=== PATIENT | female | born 2000 | race Two or more races ===

== ENCOUNTER 2020-07-20 12:46 | Emergency (ER) | payer MEDICAID, OTHER ==
[~2020-07-20] VITALS: Ht 167.6 cm; Wt 68.9 kg
[2020-07-20 13:04] VITALS: BP 147/108
[2020-07-20] MEDS ORDERED: ALPRAZolam 0.5 MG TAB PO ONE (13:45)
== END 2020-07-20 14:32 | disposition home or self-care (01) ==
LOC: EDBD 12:46 → ER 12:46
DX: F41.1 Generalized anxiety disorder (principal); J45.909 Unspecified asthma, uncomplicated; F17.210 Nicotine dependence, cigarettes, uncomplicated; Z76.0 Encounter for issue of repeat prescription
CPT/HCPCS: 93005

== ENCOUNTER 2024-07-07 05:41 | Emergency (ER) | payer MEDICAID, SELFPAY ==
[~2024-07-07] VITALS: Ht 167.6 cm; Wt 76.6 kg
--- NOTE | 2024-07-07 07:25 | ED.PDOC ---
Eye-HPI HPI Comments This is a 23 year old female presenting with chief complaint of sore throat for the past 2 weeks. Patient reports that it is painful to eat, drink, and talk with a noticeable muffled voice. Has taken DayQuil and hot teas with no relief in symptoms. Denies any sick contacts Denies chest pain shortness of breath Denies inability to move neck, history of meningitis Denies difficulty swallowing nor persistent salivation Denies persistent cough, runny nose, congestion Denies loss of appetite, unintentional weight loss over the past 3 months Denies voice changes Denies history of asthma or seasonal allergies Chief Complaint: Sore Throat Time Seen by MD: 07:21 Primary Care Provider: know Reviewed Notes: Nurses Notes, Medications, Allergies Allergies: Coded Allergies: NO KNOWN ALLERGIES (Unverified , 07/20/20) Information Source: Patient Mode of Arrival: Ambulatory Timing: Weeks Duration: Since onset Quality: Pain Lids: Normal Conjunctiva: Normal Cornea: Normal Pupils: Normal EOM: Normal Fundus: Normal Anterior chamber: Normal Mouth Location: Pharynx Mouth: Normal ENT Ear Exam: Normal Nose: Normal Sinuses: Normal Oropharynx: Red Onset: Spontaneous Throat Exposed to: None History of: None Associated signs and symptoms: Sore Throat Past Medical History PAST MEDICAL HISTORY: Anxiety, Asthma Surgical History: Denies all surgeries HIM CLERK History: Denies all HIM CLERK Hx Family History Family History: Reviewed,noncontributory to illness Social History Smoker: Non-Smoker Alcohol: Denies ETOH Use Drugs: Denies Drug Use Lives In: Home Constitutional: denies: chills, diaphoresis, fatigue, fever, malaise, sweats, weakness, others EENTM: reports: throat pain, voice changes; denies: blurred vision, double vision, ear bleeding, ear discharge, ear drainage, ear pain, ear ringing, eye pain, eye redness, hearing loss, mouth pain, mouth swelling, nasal discharge, nose bleeding, nose congestion, nose pain, photophobia, tearing, throat swelling, others Respiratory: denies: cough, hemoptysis, orthopnea, SOB at rest, shortness of breath, SOB with excertion, stridor, wheezing, others Cardiovascular: denies: chest pain, dizzy spells, diaphoresis, Dyspnea on exertion, edema, irregular heart beat, left arm pain, lightheadedness, palpitations, PND, syncope, others Gastrointestinal: denies: abdomen distended, abdominal pain, blood streaked bowels, constipated, diarrhea, dysphagia, difficulty swallowing, hematemesis, melena, nausea, poor appetite, poor fluid intake, rectal bleeding, rectal pain, vomiting, others Genitourinary: denies: abnormal vagina bleeding, burning, dyspareunia, dysuria, flank pain, frequency, hematuria, incontinence, pain, , vagina disch arge, urgency, others Neurological: denies: dizziness, fainting, headache, left sided numbness, left sided weakness, numbness, paresthesia, pre-existing deficit, right sided numbness, right sided weakness, seizure, speech problems, tingling, tremors, weakness, others Musculoskeletal: denies: back pain, gout, joint pain, joint swelling, muscle pain, muscle stiffness, neck pain, others Integumetry: denies: bruises, change in color, change in hair/nails, dryness, laceration, lesions, lumps, rash, wounds, others Allergic/Immunocompromised: denies: Difficulty Healing, Frequent Infections, Hives, Itching, others Hematologic/Lymphatic: denies: anemia, blood clots, easy bleeding, easy bruising, swollen glands, others Endocrine: denies: excessive hunger, excessive sweating, excessive thirst, excessive urination, flushing, intolerance to cold, intolerance to heat, unexplained weight gain, unexplained weight loss, others Psychiatric: denies: anxiety, bipolar disorder, depression, hopeless, panic disorder, schizophrenia, sleepless, suicidal, others All Other Systems: Reviewed and Negative Physical Exam General Appearance: No Apparent Distress, Normal HEENT: Other (Bilateral tonsillar exudates, however, there is noticeable enlargement on the left. Uvula deviation to the right. Patient has moist mucous membranes, no strawberry tongue, no [place] spots, and voice is muffled. No drooling. No tripod position.) Neck: Full Range of Motion, Non-Tender, Normal, Normal Inspection Respiratory: Chest Non-Tender, Lungs Clear, No Accessory Muscle Use, No Respiratory Distress, Normal Breath Sounds Cardiovascular: No Edema, No JVD, No Murmur, No Gallop, Normal Peripheral Pulses, Regular Rate/Rhythm Breast Exam: Deferred Gastrointestinal: No Organomegaly, Non Tender, No Pulsatile Mass, Normal Bowel Sounds, Soft Genitalia: Deferred Pelvic: Deferred Rectal: Deferred Extremities: No calf tenderness, Normal capillary refill, Normal inspection, Normal range of motion, Non-tender, No pedal edema Musculoskeletal : Apperance: Normal Neurologic: Alert, spring clipper II-XII nml as Tested, No Motor Deficits, Normal Affect, Normal Mood, No Sensory Deficits Cerebellar Function: Normal Reflexes: Normal Skin: Dry, Normal Color, Warm Lymphatic: No Adenopathy Was a procedure done? Was a procedure done?: No EENT DIFF Eye: N/A Sore Throat: Peritonsillar Abscess, Pharyngitis, Streptococcal, Viral Pharyngitis Other Differential Diagnosis Tonsillitis X-Ray, Labs, Meds, VS Vital Signs Date Time Temp Pulse Resp B/P (MAP) Pulse Ox O2 Delivery O2 Flow Rate FiO2 07/07/24 07:36 82 16 99 Room Air 07/07/24 07:36 98.5 82 16 122/80 (94) 99 98.5 07/07/24 06:02 98.2 87 16 125/82 (96) 98 98.2 Lab Test 07/07/24 07:24 07/07/24 07:21 07/07/24 07:16 Range/Units White Blood Count 11.9 H 4.4-10.8 10^3/uL Red Blood Count 4.52 4.0-5.20 10^6/uL Hemoglobin 12.6 12.2-16.2 g/dL Hematocrit 38.0 36.0-46.0 % Mean Corpuscular Volume 84.1 80.0-100.0 fL Mean Corpuscular Hemoglobin 28.0 28.0-32.0 pg Mean Corpuscular Hemoglobin Concent 33.3 32.0-36.0 g/dL Red Cell Distribution Width 14.2 11.8-14.3 % Platelet Count 227 140-450 10^3/uL Mean Platelet Volume 7.1 6.9-10.8 fL Neutrophils (%) (Auto) 87.2 H 37.0-80.0 % Lymphocytes (%) (Auto) 7.0 L 10.0-50.0 % Monocytes (%) (Auto) 5.3 0.0-12.0 % Eosinophils (%) (Auto) 0.3 0.0-7.0 % Basophils (%) (Auto) 0.2 0.0-2.0 % Neutrophils # (Auto) 10.4 H 1.6-8.6 10 ^3/uL Lymphocytes # (Auto) 0.8 0.4-5.4 10 ^3/uL Monocytes # (Auto) 0.6 0-1.3 10 ^3/uL Eosinophils # (Auto) 0 0-0.8 10 ^3/uL Basophils # (Auto) 0 0-0.2 10 ^3/uL Nucleated Red Blood Cells 0.0 % Sodium Level 140 136-145 mmol/L Potassium Level 3.1 L 3.5-5.1 mmol/L Chloride Level 102 98-107 mmol/L Carbon Dioxide Level 28 20-31 mmol/L Anion Gap 10 5-15 Blood Urea Nitrogen 7 L 9-23 mg/dL Creatinine 0.69 0.550-1.02 mg/dL Glomerular Filtration Rate Calc 124 >90 mL/min BUN/Creatinine Ratio 10.1 10.0-20.0 Serum Glucose 109 H 74-106 mg/dL Calcium Level 9.9 8.7-10.4 mg/dL Group A Streptococcus Rapid Positive Urine Color Yellow Yellow Urine Clarity Clear Clear Urine pH 6.0 5.0-9.0 Urine Specific [place] 1.041 H 1.001-1.035 Urine Protein 1+ H Negative Urine Ketones Negative Negative Urine Blood Trace H Negative /uL Urine Nitrite Negative Negative Urine Bilirubin Negative Negative Urine Urobilinogen 3 H Negative mg/dL Urine Leukocyte Esterase Negative Negative /uL Urine RBC 1 0 - 4 /hpf Urine Microscopic WBC 6 H 0-5 /HPF Urine Squamous Epithelial Cells Few <5 /hpf Urine Bacteria None seen None Seen /hpf Urine Mucus Few None Seen Urine Glucose Normal Normal mg/dL Urine Test Negative Negative Current Medications Medications (Trade) Dose Ordered Sig/Myra Route Start Time Stop Time Status Last Admin Penicillin G Benzathine (Bicillin L-A) 1,200,000 units ONCE ONCE IM 07/07/24 10:00 07/07/24 10:06 DC 07/07/24 10:39 Ketorolac Tromethamine (Toradol Injection) 30 mg ONCE ONCE IV 07/07/24 10:30 07/07/24 10:31 DC 07/07/24 10:37 Dexamethasone Sodium Phosphate (Decadron Injection) 10 mg ONCE ONCE IV 07/07/24 10:30 07/07/24 10:31 DC 07/07/24 10:38 PATIENT: ARLET BOYLET: [id number]: [id number] : 2000 LOC: ER ROOM / BED: / AGE / SEX: 23 / F ADM STATUS: REG ER SERVICE [id number] ORDERING PHYSICIAN: TRUDY DOLAN NP PROCEDURE(s): NK2CT - NECK WITH CONTRAST SOFT REASON: r/o tonsillar and retropharyngeal abscess ORDER NUMBER(s): [id number], ACCESSION NUMBER(s): [id number] CT NECK WITH CONTRAST SOFT INDICATION: r/o tonsillar and retropharyngeal abscess EXAM DATE: 07/07/2024 10:06 AM COMPARISON: None RADIATION DOSE: CTDIvol: 22 mGy, DLP: 666 mGy*cm PROCEDURE: Using the CT scanner, contiguous axial images were obtained from the great vessels to above the orbits following intravenous administration of mL . Coronal and sagittal reformatted images were then generated. All CT scans at this medical facility are performed using dose modulation techniques as appropriate to a performed exam including the following: Automated exposure control was utilized; adjustment of the MA and/or KV according to patient size; and use of iterative reconstruction technique. FINDINGS: Prominent palatine tonsils, however no focal fluid collection seen. The pharynx, larynx and trachea are normal. The parotid, submandibular and thyroid glands appear normal. There is no abnormal contrast enhancement. No mass or lymphadenopathy is seen. The visible paranasal sinuses, mastoid air cells and middle ear cavities are normally aerated. The skeletal structures, vasculature, and lung apices are normal. The visualized intracranial structures are normal. IMPRESSION: Prominent palatine tonsils could be tonsillitis, however no focal fluid collection seen to suggest for abscess. ATED BY: JACKY JACKSON MD DICTATED DATE/TIME: 07/07/24 104 SIGNED BY: JACKY JACKSON MD SIGNED DATE/TIME: 07/07/24 104 CC: X-Ray, Labs, Meds, VS Comment This is a 23 year old female presenting with chief complaint of sore throat for the past 2 weeks. Patient arrives alert and oriented, ABC's intact, afebrile, vital signs stable, saturating well in room air After ROS and physical there were concerns for peritonsillar abscess as patient had severe sore throat, muffled or hot potato voice No concerns for abscess formation as the soft palate is symmetrical and there is no displacement of the uvula and the uvula is also midline. No concerns for epiglottitis as patient denies severe sore throat, dysphagia, muffled voice, patient is not drooling nor is patient in tripod position. No signs of retropharyngeal abscess formation as patient has no fevers, stiff neck, drooling no stridor No signs of airway obstruction as patient denies sensation of foreign body vital signs stable on room air. CT ordered and reviewed Labs were ordered. CBC was ordered to exclude anemia, blood loss, or infection. BMP was ordered to exclude electrolyte abnormalities, renal failure, dehydration, hyperglycemia Urinalysis was ordered to rule out UTI or hematuria. urine was ordered to rule out . Rapid Strep Swab was ordered to rule out Strep throat. Diagnostic imaging ordered by me and results interpreted by radiology : Labs in the ED showed Strep A + WBC 11.9 Patient was treated for strep throat in the emergency department with no adverse reactions. Encouraged fluid intake Acetaminophen to reduce pain/fever NSAIDs to reduce pain/fever Nonpharmacological recommendations given Warm salt water gargles Throat lozenges Humidified air Also advised to replace toothbrush after 3 days of antibiotic use, return to school after 24 hours of treatment (no longer contagious). Return precautions given Additional MDM Review of External, Non-ED records: External records reviewed. History obtained from the patient at bedside Chronic conditions affecting care: None Social determinants of health affecting care: None Consideration of admission (observation or admission): I considered escalation of care to admission for this patient, however given the reassuring workup, the patient is safe for outpatient management. Discussion with the Radiology: No Tests considered but not performed: None Prescription medication considered but not given: None Time of 1ST Reevaluation: 08:21 Reevaluation 1ST: Unchanged Patient Education/Counseling: Diagnosis, Treatment Family Education/Counseling: No Family Present Departure 1 Departure Time of Disposition: 10:49 Impression: Primary Impression: Strep throat Disposition: 01 HOME / SELF CARE / HOMELESS Condition: Fair e-Prescriptions Ibuprofen (Ibuprofen) 600 Mg Tab 1 TAB PO TID for 10 Days, #30 TAB 0 Refills Prov: TRUDY DOLAN NP 07/07/24 Critical Care Note Critical Care Time?: No Stability Stability form required: No Heart Score Heart Score: Heart Score Response (Comments) Value History N/A 0 EKG N/A 0 Age N/A 0 Risk Factors N/A 0 Troponin N/A 0 Total 0 I personally scribed for TRUDY DOLAN [employer] ([email or web address]) on 07/07/24 at 07:25. Electronically submitted by Freddie Tejeda ([email or web address]). I personally scribed for TRUDY DOLAN [employer] ([email or web address]) on 07/07/24 at 07:26. Electronically submitted by Freddie Tejeda ([email or web address]). I personally scribed for TRUDY DOLAN [employer] ([email or web address]) on 07/07/24 at 07:37. Electronically submitted by Freddie Tejeda ([email or web address]). I personally scribed for TRUDY DOLAN [employer] ([email or web address]) on 07/07/24 at 08:11. Electronically submitted by Freddie Tejeda ([email or web address]). TRUDY DOLAN [employer] July 07, 2024 07:25
[2024-07-07 07:48] LABS: Rapid Strep A Screen-Throat Positive
[2024-07-07 08:00] LABS: Basophils # (auto) 0 10 ^3/uL (0-0.2); Basophils % (auto) 0.2 % (0.0-2.0); Eosinophils # (auto) 0 10 ^3/uL (0-0.8); Eosinophils % (auto) 0.3 % (0.0-7.0); Hemoglobin 12.6 g/dL (12.2-16.2); Lymphocytes # (auto) 0.8 10 ^3/uL (0.4-5.4); Mean Corpuscular Hgb Conc. 33.3 g/dL (32.0-36.0); Mean Corpuscular Volume 84.1 fL (80.0-100.0); Monocytes # (auto) 0.6 10 ^3/uL (0-1.3); Monocytes % (auto) 5.3 % (0.0-12.0); Neutrophils # (auto) 10.4 10 ^3/uL (1.6-8.6); Neutrophils % (auto) 87.2 % (37.0-80.0); Platelet Count (auto) 227 10^3/uL (140-450); Red Blood Cells 4.52 10^6/uL (4.0-5.20); Red Cell Distribution Width 14.2 % (11.8-14.3); White Blood Cell 11.9 10^3/uL (4.4-10.8)
[2024-07-07 08:04] LABS: Chloride 102 mmol/L (98-107); Sodium 140 mmol/L (136-145)
[2024-07-07 08:05] LABS: Anion Gap 10 (5-15); Carbon Dioxide 28 mmol/L (20-31)
[2024-07-07 08:06] LABS: Calcium 9.9 mg/dL (8.7-10.4)
[2024-07-07 08:07] LABS: Potassium 3.1 mmol/L (3.5-5.1)
[2024-07-07 08:10] LABS: Glucose 109 mg/dL (74-106)
[2024-07-07 08:11] LABS: BUN/Creatinine Ratio 10.1 (10.0-20.0); Blood Urea Nitrogen 7 mg/dL (9-23)
[2024-07-07 09:25] LABS: Urine Bacteria None Seen /hpf (None Seen)
[2024-07-07 09:39] LABS: Urine Blood TRACE /uL (Negative); Urine Clarity Clear (Clear); Urine Color Yellow (Yellow); Urine Mucus FEW (None Seen); Urine Protein, UAD 1+ (Negative); Urine Specific Gravity 1.041 (1.001-1.035); Urine Squamous Epithelial Cell FEW /hpf (<5); Urine Urobilinogen 3 mg/dL (Negative); Urine WBC 6 /HPF (0-5)
[2024-07-07] MEDS ORDERED: KETOROLAC TROMETH 60MG/2ML VIAL IM ONE (10:00)
[2024-07-07] MEDS ORDERED: DexAMETHasone SOD PHOS 10MG/1ML VIAL INJ IM ONE (10:00)
[2024-07-07] MEDS: KETOROLAC TROMETH 30 MG/ML 1ML VIAL IV ONE (10:37)
[2024-07-07] MEDS: IOHEXOL 300 MG/ML 100ML BOTTLE IJ ONE (10:37)
[2024-07-07] MEDS: DexAMETHasone SOD PHOS 10MG/1ML VIAL INJ IV ONE (10:38)
[2024-07-07] MEDS: PENICILLIN G BENZ 1,200,000 UNITS/2 ML SYRG IM ONE (10:39)
--- NOTE | 2024-07-07 10:42 | DVH ---
CT NECK WITH CONTRAST SOFT INDICATION: r/o tonsillar and retropharyngeal abscess EXAM DATE: 07/07/2024 10:06 AM COMPARISON: None RADIATION DOSE: CTDIvol: 22 mGy, DLP: 666 mGy*cm PROCEDURE: Using the CT scanner, contiguous axial images were obtained from the great vessels to abov e the orbits following intravenous administration of mL . Coronal and sagittal reformatted images were then generated. All CT scans at this medical facility are performed using dose modulation techniques as appropriate t o a performed exam including the following: Automated exposure control was utilized; adjustment of th e MA and/or KV according to patient size; and use of iterative reconstruction technique. FINDINGS: Prominent palatine tonsils, however no focal fluid collection seen. The pharynx, larynx and trachea are normal. The parotid, submandibular and thyroid glands appear normal. There is no abnorma l contrast enhancement. No mass or lymphadenopathy is seen. The visible paranasal sinuses, mastoid ai r cells and middle ear cavities are normally aerated. The skeletal structures, vasculature, and lung apices are normal. The visualized intracranial structures are normal. IMPRESSION: Prominent palatine tonsils could be tonsillitis, however no focal fluid collection seen to suggest fo r abscess.
[2024-07-07] MEDS ORDERED: IBUP-1454 PO (10:50)
[2024-07-07 11:23] VITALS: BP 122/78; PULSE 92; RESP 16; TEMP 98.9; O2SAT 98
== END 2024-07-07 11:24 | disposition home or self-care (01) ==
LOC: ER 05:44
DX: J02.0 Streptococcal pharyngitis (principal); J45.909 Unspecified asthma, uncomplicated; F41.9 Anxiety disorder, unspecified
CPT/HCPCS: 36415; 70491; 80048; 81001; 81025; 85025; 87880; 96372; 96374; 96375; 99285; J0561; J1100; J1885; Q9967